=== PATIENT | female | born 1995 | race Caucasian/White ===

== ENCOUNTER 2022-12-21 19:36 | Emergency (ER) | payer MEDICAID, SELFPAY ==
[2022-12-21 19:40] VITALS: BP 129/96; PULSE 120; RESP 16; O2SAT 99; BMI 20.4
--- NOTE | 2022-12-21 19:47 | ED_ITS ---
HPI - Allergic Reaction General Chief complaint: Allergic Reaction Stated complaint: swollen face-poss allergic rection, tongue feels f Time Seen by Provider: 12/21/22 19:42 Source: patient Mode of arrival: walk-in Limitations: no limitations History of Present Illness HPI narrative: patient presents complaining of itchy sensation of her throat. Swelling at her right mandible. present all day. No dyspnea or dental pain. No associated headache. Able to swallow and doesn't feel short of breath. No fever MD complaint: Reports facial swelling Related Data Home Medications Medication Instructions Recorded Confirmed No Known Home Medications 12/21/22 12/21/22 Allergies Allergy/AdvReac Type Severity Reaction Status Date / Time cherries Allergy Unknown Uncoded 12/21/22 19:46 Review of Systems ROS Status of ROS 10 or more systems reviewed and unremarkable except as noted in history and below [facility] Social History Smoking status: Current some day smoker Exam Constitutional Vital Signs, click to edit/add: Last Vital Signs Pulse 120 H 12/21/22 19:40 Resp 16 12/21/22 19:40 BP 129/96 H 12/21/22 19:40 Pulse Ox 99 12/21/22 19:40 O2 Del Method Room Air 12/21/22 19:40 Common normals: no apparent distress, average body habitus, oriented x3, no limitations, healthy appearing, alert and well nourished [facility] Common normals: normocephalic Face and sinus images: 1. swelling Other: no dental caries and teeth nontender Eye Common normals: PERRL, EOMs intact bilaterally, conjunctivae normal and no scleral icterus Chest Common normals: inspection of chest normal Respiratory Common normals: normal respiratory effort, no retractions, no use of accessory muscles and clear to auscultation bilaterally Cardio Common normals: regular rate, regular rhythm, S1 normal heart sound and S2 normal heart sound GI Common normals: Normal to inspection, nondistended, normoactive bowel sounds present and soft to palpation Extremity Common normals: normal to inspection and full ROM Neuro Common normals: oriented x3, CN's II-XII intact bilaterally, moves all extremities, no focal motor deficits and no sensory deficits noted Psych Appearance: grossly normal Course Vital Signs Vital signs: Vital Signs Pulse Rate 120 H 12/21/22 19:40 Respiratory Rate 16 12/21/22 19:40 Blood Pressure 129/96 H 12/21/22 19:40 Pulse Oximetry 99 12/21/22 19:40 Oxygen Delivery Method Room Air 12/21/22 19:40 Pulse Rate 120 H 12/21/22 19:40 Respiratory Rate 16 12/21/22 19:40 Blood Pressure 129/96 H 12/21/22 19:40 Pulse Oximetry 99 12/21/22 19:40 Oxygen Delivery Method Room Air 12/21/22 19:40 MDM - Allergic Reaction MDM Narrative Medical decision making narrative: patient presents with swelling at right face/mandible and itchy sensation of her throat. Exam without obvious dental caries. Patient treated as possible allergic reaction with solumedrol and benadry. CT ordered and demonstrated abscess involving right lower molar with lymphadenopathy. patient given dose of clindamycin and then discharged home to follow up with her dentist next week Imaging Data CT scan - head: Radiologist's impression: nt Name: GERMAINE JUNIRO MRN: [id number] date: 1995 Sex: F Assigned Patient Location: ED.MAIN Current Patient Location: ER Accession/Order Number: [id number] Exam Date: 12/21/2022 20:50 Report Date: 12/21/2022 21:34 At the request of: JORDYN LEUNG Procedure: CT soft tissue neck w con CT soft tissue neck w con HISTORY: Right-sided facial swelling TECHNIQUE: CT of the neck soft tissues following IV administration of 100 cc [address] All [address] scans at this facility use dose modulation, iterative reconstruction, and/or weight based dosing when appropriate to reduce radiation dose to as low as reasonably achievable. COMPARISON: None. RESULT: Lymph nodes: No cervical lymphadenopathy by size, number or morphologic criteria. Prominent to mildly enlarged right greater than left jugulodigastric node, likely reactive. Aerodigestive tract: The oral cavity is partially obscured by artifact from dental amalgam. The nasal cavities, naso-oropharynx, pharyngeal mucosal space, laryngeal structures and infraglottic trachea are within normal limits. Major salivary glands: Within normal limits. Thyroid gland: Within normal limits. Carotid space: Patent bilateral extracranial carotid and jugular systems. Soft tissues: Moderate skin thickening, subcutaneous soft tissue stranding involving the right perimandibular and buccal soft tissues. Additionally, there is a 17 x 4 mm focal surface fluid collection (series 3 image 29), adjacent to a first mandibular molar dental caries, concerning for an abscess. Intracranial contents: Imaged portions within normal limits. Paranasal sinuses, middle ears, mastoids: Clear. Orbits: Within normal limits. Bones: No suspicious osseous lesions in the imaged calvarium, skull base and spine. Normal cervicothoracic alignment. No significant spondylotic changes. Temporomandibular joints are maintained. Lungs: Imaged lungs are clear. CT/CT soft tissue neck w con IMPRESSION: 17 x 4 mm right mandibular buccal surface peripherally enhancing fluid collection, likely an abscess, with adjacent soft tissue stranding and skin thickening likely secondary to a first mandible dental infection. Multiple prominent-mildly enlarged reactive jugulodigastric nodes. Electronically authenticated by: REBECA WEST Date: 12/21/2022 21:34 Dictated By: Rebeca West M.D. Signed By: 12/21/222136 DD/ 33 Discharge Plan Discharge Chief Complaint: Allergic Reaction Clinical Impression: Dental abscess Patient Disposition: Home, Self-Care Prescriptions / Home Meds: No Action No Known Home Medications Instructions: Dental Abscess (ED) Additional Instructions: follow up with your dentist next week Stand Alone Forms: Portal Instructions Referrals: Olvin Franklin MD [Primary Care Provider] - 1 week Discharge Date/Time: 12/21/22 22:33
[2022-12-21 20:04] LABS: Basophils Percent Auto 0.4 % (0.2-2.0); Eosinophils Absolute Auto 0.1 10^3/uL (0.0-0.7); Eosinophils Percent Auto 0.8 % (0.9-7.0); Hematocrit 38.6 % (36.0-48.0); Hemoglobin 13.5 g/dL (12.0-16.0); Immature Granulocytes Abs Auto 0.02 10^3/uL (0.00-0.03); Immature Granulocytes Pct Auto 0.2 % (0.0-0.5); Lymphocytes Absolute Auto 1.9 10^3/uL (1.2-3.8); Mean Corpuscular Hemoglobin 31.8 pg (26.7-34.0); Monocytes Absolute Auto 1.1 10^3/uL (0.3-0.8); Monocytes Percent Auto 9.8 % (1.7-12.0); Neutrophils Absolute Auto 7.6 10^3/uL (1.4-6.5); Neutrophils Percent Auto 70.8 % (43.0-75.0); Platelet Count 228 10^3/uL (150-450); Red Blood Count 4.24 10^6/uL (4.20-5.40); Red Cell Distribution Width 11.2 % (11.0-15.0); White Blood Count 10.7 10^3/uL (4.0-11.0)
[2022-12-21 20:13] LABS: BUN Creatinine Ratio 20.7; Calcium 9.5 mg/dL (8.5-10.1); Carbon Dioxide 27.9 mmol/L (21.0-32.0); Chloride 101 mmol/L (98-107); Estimated GFR (African America >60 (>=60); Estimated GFR (Non-African Ame >60 (>=60); Glucose 89 mg/dL (74-106); Potassium 3.9 mmol/L (3.5-5.1); Sodium 138 mmol/L (136-145)
[2022-12-21 20:14] LABS: HCG Qualitative NEGATIVE (NEGATIVE)
[2022-12-21] MEDS: METHYLPREDNISOLONE SOD SUCC PF 125 MG/2 ML VIAL IM (20:16)
[2022-12-21] MEDS: DIPHENHYDRAMINE HCL 50 MG/ML (1ML) VIAL 25 MG IV (20:17)
[2022-12-21] MEDS: FAMOTIDINE/PF 20 MG/2 ML VIAL IV (20:18)
[2022-12-21] MEDS: 0.9 % SODIUM CHLORIDE 1,000 ML 999 ML IV (20:18)
[2022-12-21] MEDS: ONDANSETRON PF 4 MG/2 ML VIAL IV (20:40)
[2022-12-21 20:51] VITALS: BP 110/67; PULSE 97; RESP 16; O2SAT 100
[2022-12-21] MEDS: KETOROLAC TROMETHAMINE 30 MG/ML VIAL IVP (21:07)
[2022-12-21] MEDS: CLINDAMYCIN PHOSPHATE/D5W 900 MG/50 ML PIGGYBACK 100 MG IV (21:50)
[2022-12-21] MEDS: CLINDAMYCIN HCL 150 MG CAPSULE 300 MG PO (22:28)
== END 2022-12-21 22:33 | disposition home or self-care (01) ==
PROVIDERS: Emergency Provider Internal Medicine; PCP Family Medicine
DX: K04.7 Periapical abscess without sinus (principal); F17.210 Nicotine dependence, cigarettes, uncomplicated
CPT/HCPCS: 36415; 70491; 80048; 84703; 85025; 96365; 96372; 96375; 99285; J2930; Q9967

== ENCOUNTER 2023-01-14 09:03 | Outpatient (OUT) | payer MEDICAID, SELFPAY ==
--- NOTE | 2023-01-14 09:44 | XR_ITS ---
The [address] [address] Patient Name: GERMAINE JUNIOR MRN: [id number] date: 1995 Sex: F Assigned Patient Location: [facility] Current Patient Location: [facility] Accession/Order Number: [id number] Exam Date: 01/14/2023 10:00 Report Date: 01/14/2023 10:19 At the request of: BLACK ARROYO Procedure: XR chest 2V EXAM: XR chest 2V HISTORY: Preop exam COMPARISON: None. TECHNIQUE: PA and lateral views of the chest. FINDINGS: The cardiomediastinal silhouette is normal. No focal consolidation is identified. There is no pneumothorax. No pleural effusion is noted. The osseous structures are intact. XR/XR chest 2V IMPRESSION: No acute cardiopulmonary process. Electronically authenticated by: MARKY JOLLY Date: 01/14/2023 10:19
== END 2023-01-14 09:04 | disposition home or self-care (01) ==
PROVIDERS: PCP Family Medicine; Visit Provider Obstetrics & Gynecology
DX: Z01.810 Encounter for preprocedural cardiovascular examination (principal); Z30.2 Encounter for sterilization
CPT/HCPCS: 71046

== ENCOUNTER 2023-01-23 08:54 | Day surgery (SDC) | payer MEDICAID, SELFPAY ==
[2023-01-14 09:50] VITALS: BP 103/72; PULSE 81; RESP 16; TEMP 36.3; O2SAT 98; BMI 20.5
[2023-01-23] VITALS (14 sets, daily range): BP systolic 82–114; BP diastolic 46–76; PULSE 64–86; RESP 14–23; TEMP 36.3–36.5; O2SAT 89–100; BMI 20.4
[2023-01-23 09:02] LABS: Basophils Percent Auto 0.4 % (0.2-2.0); Eosinophils Absolute Auto 0.2 10^3/uL (0.0-0.7); Eosinophils Percent Auto 2.3 % (0.9-7.0); Hematocrit 39.3 % (36.0-48.0); Hemoglobin 13.2 g/dL (12.0-16.0); Immature Granulocytes Abs Auto 0.02 10^3/uL (0.00-0.03); Immature Granulocytes Pct Auto 0.3 % (0.0-0.5); Lymphocytes Absolute Auto 2.3 10^3/uL (1.2-3.8); Lymphocytes Percent Auto 31.3 % (20.5-60.0); Mean Corpuscular HGB Conc 33.6 g/dL (29.9-35.2); Mean Corpuscular Hemoglobin 31.2 pg (26.7-34.0); Mean Corpuscular Volume 92.9 fL (81.0-99.0); Mean Platelet Volume 10.9 fL (9.5-13.5); Monocytes Absolute Auto 0.6 10^3/uL (0.3-0.8); Monocytes Percent Auto 7.5 % (1.7-12.0); Neutrophils Absolute Auto 4.2 10^3/uL (1.4-6.5); Neutrophils Percent Auto 58.2 % (43.0-75.0); Platelet Count 191 10^3/uL (150-450); Red Blood Count 4.23 10^6/uL (4.20-5.40); Red Cell Distribution Width 11.6 % (11.0-15.0); White Blood Count 7.3 10^3/uL (4.0-11.0)
[2023-01-23 09:20] LABS: HCG Quantitative <1 mIU/mL
[2023-01-23] MEDS: LACTATED RINGER'S SOLUTION 1,000 ML 50 ML IV (09:21)
[2023-01-23] MEDS: SCOPOLAMINE 1 MG/3 DAYS TRANSDERM PATCH 1 PATCH TD (11:31)
[2023-01-23] MEDS: LACTATED RINGER'S SOLUTION 1,000 ML 1000 ML IV (12:18)
--- NOTE | 2023-01-23 12:18 | PM.ONB ---
Brief Operative Note Date of procedure: 01/23/23 Pre-op diagnosis: desires permanent sterilization, multiparity Post-op diagnosis: same as pre-op Procedure: NAME OF PROCEDURE: bilateral laparoscopic salpingectomy PROCEDURE: The patient was taken back to the Operating Room where she was given general anesthesia without difficulty. She was then prepped and draped in the normal sterile fashion after being placed in a dorsal lithotomy position. A wet sponge stick was placed into the patient's vagina. Attention was then turned to the patient's abdomen, where a scalpel was used to make a small infraumbilical incision. The S retractors were then used to dissect the underlying layers until the fascia could be seen. The fascia was then grasped with Celia clamps and tented up. A knife was then used to make a small incision to the fascia. The muscle was identified, at that time two sutures of #0 Vicryl on a GI needle was then used and placed through the fascia. the peritoneum was then identified and entered bluntly. The 10-4 Meet was then placed into the patient's abdomen. This was confirmed with direct visualization of the bowel, using the laparoscope. The patient's abdomen was then insufflated using approximately 4 liters of CO2 gas. Survey of the patient's abdomen demonstrated ovaries were normal in appearance as well as both tubes and uterus. A second and third rt and lt lateral ports which were 5 and 8 mm in size, was then placed after the skin incision was made under direct visualization . The patient's tube on the patient's right side was identified and tented up using a grasper, the ligasure apparatus was then used to come across the mesosalpingx from the fimbriated end to the insertion site at the uterus, the tube was then amputated and removed in its entirety. This was done on the contralateral side. The tubes were the removed from the patients abdomen. Excellent hemostasis was noted. The lateral ports were then moved under direct visualization with excellent hemostasis. All instruments were removed from the patient's abdomen. The fascia was closed using the #0 Vicryl on GI needle. The skin was closed using 4-0 Vicryl subcuticularly. All instruments were removed from the patient's vagina as well. The patient was taken out of the dorsal lithotomy position and placed in the supine position and taken to recovery in stable condition. Sponge, lap and needle counts were correct x2. Anesthesia: ELISE Surgeon: Ronald Estrada Stock Grader: Lorraine Mckeon Estimated blood loss (mL): 5 Pathology: other (tubes) Condition: stable Disposition: PACU
--- NOTE | 2023-01-23 13:00 | PC.NURSE ---
dressing site x 3 to abdomen scant kayden on 2 and 3 of blood. Debbie pad is dry no drainage.
[2023-01-23] MEDS: HYDROCODONE/ACET 5-325 MG TABLET 1 TAB PO (13:23)
== END 2023-01-23 14:25 | disposition home or self-care (01) ==
PROVIDERS: PCP Family Medicine; Visit Provider Obstetrics & Gynecology
PROC: (CPT 840; principal; 2023-01-23 10:10)
DX: Z30.2 Encounter for sterilization (principal); F41.8 Other specified anxiety disorders; Z87.891 Personal history of nicotine dependence; J45.909 Unspecified asthma, uncomplicated; R56.9 Unspecified convulsions
CPT/HCPCS: 58661; 36415; 84702; 85025; 88302; J2704